=== PATIENT | male | born 1970 | race Native Hawaiian/Other Pacific Islander ===

== ENCOUNTER 2019-04-04 21:09 | Emergency (ER) | payer OTHER ==
[2019-04-04] MEDS ORDERED: PEPCID IV ONE (21:26)
[2019-04-04] MEDS ORDERED: BENADRYL IV ONE (21:26)
[2019-04-04] MEDS ORDERED: ZOFRAN IV ONE (22:12)
--- NOTE | 2019-04-04 23:41 | Emergency Department Report ---
HPI - General Chief Complaint: Allergic Reaction Time Seen by Provider: 04/04/19 21:26 - HPI HPI: 48-year-old male with no significant past medical history presents to the hospital complaining allergic reaction. Patient was stung by about 4-6 yellow jackets. Patient developed voice changes and generalized hives with pruritus. I received report that patient initially received Benadryl 25 mg and Solu-Medrol 125 mg with improvement in symptoms in route to the hospital. Apparently EMS reported to nurse that patient received Benadryl 50 mg prior to arrival. Patient complains of some residual throat discomfort but hives had disappeared since treatment. ED Past Medical Hx - Past Medical History Previous Medical History?: No - Surgical History Past Surgical History?: No - Social History Smoking Status: Never Smoker Substance Use Type: Alcohol - Medications Home Medications: Home Medications Medication Instructions Recorded Confirmed Last Taken Type EPINEPHrine [Epipen] 0.3 mg IJ ONCE PRN #1 auto.injct 04/05/19 Unknown Rx Famotidine [Pepcid] 20 mg PO BID #10 tablet 04/05/19 Unknown Rx diphenhydrAMINE [Benadryl CAP] 25 mg PO Q6HR PRN #30 capsule 04/05/19 Unknown Rx predniSONE [Deltasone] 40 mg PO QDAY 5 Days tab 04/05/19 Unknown Rx ED Review of Systems ROS: Stated complaint: ALLERGIC REACTION Other details as noted in HPI Comment: All other systems reviewed and negative Physical Exam - Physical Exam Vital Signs: Vital Signs 04/04/19 21:36 Temperature 97.9 F Pulse Rate 112 H Respiratory 12 Rate Blood Pressure 118/76 [Right] O2 Sat by Pulse 100 Oximetry Physical Exam: General: No limitations, patient is alert in no acute distress Head exam: Atraumatic, normocephalic Eyes exam: Normal appearance, pupils equal reactive to light, extraocular movements intact ENT: Moist mucous membrane, normal oropharynx without posterior pharyngeal edema, no stridor Neck exam: Normal inspection, full range of motion, no meningismus nontender Respiratory exam: Clear to auscultation bilateral, no wheezes, rales, crackles Cardiovascular: Normal rate and rhythm, normal heart sounds Abdomen: Soft, nondistended, and nontender, with normal bowel sounds, no rebound, or guarding Extremity: Full range of motion normal inspection no deformity Back: Normal Inspection, full range of motion, no tenderness Neurologic: Alert, oriented x3, cranial nerves intact, no motor or sensory deficit Psychiatric: normal affect, normal mood Skin: Warm, dry, intact, no rash ED Course Vital Signs 04/04/19 21:36 Temperature 97.9 F Pulse Rate 112 H Respiratory 12 Rate Blood Pressure 118/76 [Right] O2 Sat by Pulse 100 Oximetry ED Medical Decision Making - Medical Decision Making Patient's symptoms continued to iproved with additional 12.5 mg of Benadryl and Pepcid. He was observed for several hours and he feels like he is back to normal prior to discharge. - Differential Diagnosis allergic reaction Critical Care Time: No Critical care attestation.: If time is entered above; I have spent that time in minutes in the direct care of this critically ill patient, excluding procedure time. ED Disposition Clinical Impression: Allergic to insect stings Disposition: TO HOME OR SELFCARE Is pt being admited?: No Does the pt Need Aspirin: No Condition: Stable Instructions: Insect Bite or Sting (ED) Additional Instructions: Take the medication as prescribed. Follow up with your doctor or the clinic/doctor provided. Return if symptoms worsen as indicated by your discharge instructions Prescriptions: diphenhydrAMINE [Benadryl CAP] 25 mg PO Q6HR PRN #30 capsule PRN Reason: Allergy Symptoms predniSONE [Deltasone] 40 mg PO QDAY 5 Days tab EPINEPHrine [Epipen] 0.3 mg IJ ONCE PRN #1 auto.injct PRN Reason: Anaphylaxis Famotidine [Pepcid] 20 mg PO BID #10 tablet Referrals: [facility] MD NGOZI [Primary Care Provider] - 3-5 Days DURAN WILDER DO [Staff Physician] - 3-5 Days Time of Disposition: 01:14
[2019-04-05 02:01] VITALS: BP 113/68
== END 2019-04-05 01:40 | disposition home or self-care (01) ==
LOC: ED 21:09
DX: T63.441A Toxic effect of venom of bees, accidental (unintentional), initial encounter (principal); Z79.899 Other long term (current) drug therapy; Y92.89 Other specified places as the place of occurrence of the external cause
CPT/HCPCS: 96374; 96375; 99283; J1200; J2405